=== PATIENT | female | born 1985 | race Caucasian/White ===

== ENCOUNTER → 2022-09-10 | Outpatient (CLI) | payer SELFPAY ==
--- NOTE | 2022-09-10 16:30 | RAD_ITS ---
INDICATION: CONSTIPATION EXAMINATION/TECHNIQUE: X-RAY - XR Abdomen 1 View COMPARISON: 10/04/2015 FINDINGS: BOWEL GAS PATTERN: Non-obstructive. No bowel or stomach distention. Small to moderate amount of retained stool in colon. FREE AIR: Not assessed on a single supine view. ORGANOMEGALY: Not seen. CALCIFICATIONS: No abnormal calcifications observed. LOWER CHEST: No acute pathology. BONES AND SOFT TISSUES: No acute pathology. RAD/Abdomen Single View IMPRESSION: Non-obstructive bowel gas pattern. Small to moderate amount of fecal retention. Electronically Signed: Jim Willingham MD at 16:46 EDT ,
== END | disposition home or self-care (01) ==
PROVIDERS: PCP Family Medicine; Referring Provider Urology; Visit Provider Urology
DX: K59.00 Constipation, unspecified (principal)
CPT/HCPCS: 74018